=== PATIENT | male | born 1990 | race Caucasian/White ===

== ENCOUNTER 2018-05-26 18:27 | Emergency (ER) | END 2018-05-26 20:30 | disposition home or self-care (01) ==

== ENCOUNTER 2019-05-22 13:42 | Emergency (ER) | payer OTHER ==
[~2019-05-22] VITALS: Ht 172.7 cm; Wt 86.3 kg
[~2019-05-22 13:42] MED LIST: LORA-441 PO
[2019-05-22 13:50] VITALS: Ht 172.7 cm; Wt 86.3 kg
--- NOTE | 2019-05-22 15:07 | ERD ---
ER Documentation Chief Complaint Chief Complaint "Lower back surg I have trouble speak": unable to focus, specify complaint HPI 29-year-old male with underlying schizophrenia who is very limited and difficult historian because of this. Patient gives a convoluted history but in the end it appears the patient is currently being evaluated for breakdown of the skin to the left elbow related to prior elbow surgery. The patient has hardware in this elbow. He has been evaluated in the emergency room and with his orthopedic surgeon at the [facility] over the past several days. It appears he is being scheduled for nonemergent surgery with his orthopedic surgeon within the next several weeks. It is unclear exactly why is here today other than he is afraid that he is "septic". Patient states that he thinks that he might be sick but cannot articulate why. He denies any fevers or chills or chest pain or shortness of breath. Patient denies any redness or drainage from the elbow itself. He is not taking any antibiotics. ROS All systems reviewed and are negative except as per history of present illness. Medications Home Meds Active Scripts Lorazepam* (Ativan*) 0.5 Mg Tablet, 0.5 MG PO Q8H PRN for ANXIETY, #5 TAB Prov:ROBERTA ZAYAS PA-C 05/26/18 Allergies Allergies: Coded Allergies: No Known Allergy (Unverified , 05/26/18) PMhx/Soc History of Surgery: Yes (back and L elbow) Anesthesia Reaction: No Hx Neurological Disorder: No Hx Respiratory Disorders: No Hx Cardiac Disorders: No Hx Psychiatric Problems: Yes (SCHIZOPHRENIA) Hx Miscellaneous Medical Probl: No Hx Alcohol Use: No Hx Substance Use: No Hx Tobacco Use: No Smoking Status: Never smoker FmHx Family History: No diabetes Physical Exam Vitals Vital Signs Date Temp Pulse Resp B/P (MAP) Pulse Ox O2 O2 Flow FiO2 Time Delivery Rate 05/22/19 97.7 66 17 125/74 100 Room Air 15:20 (91) 05/22/19 98.8 98 16 179/80 99 13:50 (113) Physical Exam General: Well developed, well nourished, no acute distress Head: Normocephalic, atraumatic. Eyes: Pupils equally reactive, EOM intact ENT: Moist mucous membranes Neck: Supple, no lymphadenopathy Respiratory: Lungs clear bilaterally, no distress Cardiovascular: RRR, no murmurs, rubs, or gallops Abdominal: Soft, non-tender, non-distended, no peritoneal signs : Deferred MSK: The patient's left elbow has a very small punctate area overlying the olecranon process that appears to be communicating with his hardware. The base of the hardware is visualized. There is no drainage or discharge, erythema or warmth. The patient has full active and passive range of motion of the elbow itself. Neurologic: Alert and oriented, moving all extremities, normal speech, no focal weakness, no cerebellar signs Skin: No rash Psych: Anxious mood, some underlying stigmata of schizophrenia but no SI or HI. Moderate insight. Occasionally slightly disorganized. Result Diagram: 05/22/19 1426 05/22/19 1426 Results 24 hrs Laboratory Tests Test 05/22/19 14:26 White Blood Count 5.4 10^3/ul Red Blood Count 4.97 10^6/ul Hemoglobin 15.6 g/dl Hematocrit 45.2 % Mean Corpuscular Volume 90.9 fl Mean Corpuscular Hemoglobin 31.4 pg Mean Corpuscular Hemoglobin Concent 34.5 g/dl Red Cell Distribution Width 12.2 % Platelet Count 241 10^3/UL Mean Platelet Volume 10.3 fl Immature Granulocytes % 0.200 % Neutrophils % 56.3 % Lymphocytes % 31.8 % Monocytes % 8.6 % Eosinophils % 2.2 % Basophils % 0.9 % Nucleated Red Blood Cells % 0.0 /100WBC Immature Granulocytes # 0.010 10^3/ul Neutrophils # 3.1 10^3/ul Lymphocytes # 1.7 10^3/ul Monocytes # 0.5 10^3/ul Eosinophils # 0.1 10^3/ul Basophils # 0.1 10^3/ul Nucleated Red Blood Cells # 0.0 10^3/ul Sodium Level 145 mmol/L Potassium Level 3.6 mmol/L Chloride Level 107 mmol/L Carbon Dioxide Level 27 mmol/L Anion Gap 11 Blood Urea Nitrogen 10 mg/dl Creatinine 0.75 mg/dl Est Glomerular Filtrat Rate mL/min > 60 mL/min Glucose Level 95 mg/dl Calcium Level 9.6 mg/dl Procedures/MDM LAB INTERPRETATION: I reviewed the laboratory testing and it shows no evidence of acute process MEDICAL DECISION MAKING: The patient presents for an evaluation. The patient is currently undergoing appropriate outpatient management of what appears to be a communicating skin area to the hardware of his left elbow. Clinically the patient has no evidence of septic arthritis. He is full active and passive range of motion of his elbow. No drainage or discharge, no erythema or warmth. No fever. Stable vital signs. The patient is convinced that he may have a serious infection although his clinical exam and history do not suggest an acute process. Patient likely requires surgical intervention of this elbow but certainly as an outpatient and he is currently receiving appropriate management and care at this time. The patient states that he needs more reassurance rather than just a physical exam. I offered laboratory testing and the patient states that this would make him feel better. I believe his underlying schizophrenia is likely contributing to anxiety. However, at this time the patient subacute nature of the presentation is not consistent with an acute emergent medical condition. Reassurance is provided and the patient can be safely discharged with normal laboratory testing. ER COURSE: * Laboratory testing is unremarkable. The patient remains well-appearing, afe brile. While he has underlying psychiatric illness he does not meet criteria for hospitalization. Patient has appropriate follow-up at the [facility]. CONSULTATION: None DISPOSITION PLAN: The patient does not have an identifiable emergent medical condition that warrants inpatient hospitalization at this time. The patient is deemed safe for discharge with outpatient follow-up. We discussed follow up with the patient's primary care doctor within 24 to 48 hours as needed. We also discussed return to the emergency room for worsening symptoms or worsening condition. Outpatient referral: Orthopedic surgery at the [facility] Discharge Medications: None required Departure Diagnosis: Primary Impression: Encounter for medical screening examination Additional Impressions: Anxiety reaction History of schizophrenia Condition: TASIA Joseph MD May 22, 2019 15:07
[2019-05-22 15:20] VITALS: BP 125/74; PULSE 66; RESP 17
== END 2019-05-22 15:36 | disposition home or self-care (01) ==
LOC: E/R 13:42
DX: F41.9 Anxiety disorder, unspecified (principal); Z86.59 Personal history of other mental and behavioral disorders
CPT/HCPCS: 80048; 85025; 99283